=== PATIENT | male | born 1965 | race Caucasian/White ===

== ENCOUNTER 2021-10-20 07:07 | Emergency (ER) | payer OTHER ==
[2021-10-20] MEDS ORDERED: PREDNISONE 20MG20 MG PO (08:11)
== END 2021-10-20 08:28 | disposition home or self-care (01) ==
LOC: FER 07:07
DX: M54.50 Low back pain, unspecified (principal); G89.29 Other chronic pain; I10 Essential (primary) hypertension; Z28.311 Partially vaccinated for COVID-19
CPT/HCPCS: 72110